=== PATIENT | male | born 1940 | race Caucasian/White ===

== ENCOUNTER 2020-09-26 09:29 | Emergency (ER) | payer MEDICARE ==
[2020-09-26 09:46] VITALS: BP 148/77; PULSE 68; RESP 18; TEMP 97.8
[2020-09-26] MEDS ORDERED: KETOROLAC 15 MG/ML 1 ML VIAL IM STA (10:31)
--- NOTE | 2020-09-26 10:46 | ED ---
Back Pain HPI - General Chief Complaint: Back Pain/Injury Stated Complaint: back pain/arm tingling Time Seen by Provider: 09/26/20 10:04 Source: patient, family Limitations: no limitations - History of Present Illness Initial Comments: Patient is a 80-year-old male presenting to the emergency Department with complaints of left-sided upper back pain and left shoulder pain that started yesterday. Patient states he noticed it when he woke up yesterday morning and throughout the day has progressively getting worse. He states this morning he woke up and feels like a tightness is worse and having some intermittent tingling into his fingers. He states that a few days before his pain started he was doing a lot of lifting and throwing of small pieces of wood. He states he has had issues with his back in the past, no surgeries, no traumas. He denies any falls. He denies any fevers or chills, no chest pain or shortness of breath. He states he has been eating and drinking as normal. He has no further complaints at this time. - Related Data Previous Rx's Medication Instructions Recorded Cyclobenzaprine [Flexeril] 5 mg PO BID #10 tablet 09/26/20 Allergies Allergy/AdvReac Type Severity Reaction Status Date / Time hydromorphone [From Dilaudid] Allergy Hallucinati Verified 09/26/20 09:46 ons Review of Systems ROS Statement: Those systems with pertinent positive or pertinent negative responses have been documented in the HPI. ROS Other: All systems not noted in ROS Statement are negative. Past Medical History Past Medical History: No Reported History History of Any Multi-Drug Resistant Organisms: None Reported Past Surgical History: No Surgical Hx Reported Past Psychological History: No Psychological Hx Reported Smoking Status: Never smoker Past Alcohol Use History: Occasional Past Drug Use History: None Reported General Exam - General Exam Comments Initial Comments: GENERAL: Patient is well-developed and well-nourished. Patient is nontoxic and in no acute distress. HEAD: Atraumatic, normocephalic. EYES: Pupils equal round and reactive to light, extraocular movements intact, sclera anicteric, conjunctiva are normal. Eyelids were unremarkable. ENT: TMs normal, nares patent, oropharynx clear without exudates. Moist mucous membranes. NECK: Normal range of motion, supple without lymphadenopathy or JVD. LUNGS: Unlabored respirations. Breath sounds clear to auscultation bilaterally and equal. No wheezes rales or rhonchi. HEART: Regular rate and rhythm without murmurs, rubs or gallops. ABDOMEN: Soft, nontender, normoactive bowel sounds. No guarding, no rebound. No masses appreciated. : Deferred MUSCULOSKELETAL: Normal extremities with adequate strength and normal range of motion, no pitting or edema. No clubbing or cyanosis. Patient has tenderness with palpation along the left trapezius muscle, up towards the lower neck and scapular region. NEUROLOGICAL: Patient is alert and oriented x 3. Motor and sensory are also intact. Cranial nerves II through XII grossly intact. Symmetrical smile. Normal speech, normal gait. PSYCH: Normal mood, normal affect. SKIN: Warm, Dry, normal turgor, no rashes or lesions noted. Limitations: no limitations Course Vital Signs 09/26/20 09:40 Temperature 97.8 F Pulse Rate 68 Respiratory 18 Rate Blood Pressure 148/77 O2 Sat by Pulse 97 Oximetry Medical Decision Making - Medical Decision Making Patient is a 80-year-old male here for left-sided upper back and shoulder pain that started yesterday. No chest pain or shortness of breath, his vitals are stable. His exam is consistent with muscle skeletal tightness and spasm. His strength is equal and bilateral, no acute neuro deficits. I discussed with patient to use heat to the area stretching and trial of muscle relaxer nighttime. I will give him a shot of Toradol here today in the ER. He will also follow up with orthopedics if his symptoms persist after 1-2 weeks. He is in agreement with this plan of care and he is stable for discharge. Case discussed with Dr. Hall. Disposition Clinical Impression: Spasm of thoracic back muscle Disposition: HOME SELF-CARE Condition: Stable Instructions (If sedation given, give patient instructions): Muscle Spasm (ED) Additional Instructions: Please return to the Emergency Department if symptoms worsen or any other concerns. Apply heat to the area, gentle stretching. May take Tylenol and/or ibuprofen for any discomfort. Trial of muscle relaxer at night. If symptoms persist after 1-2 weeks, follow up with orthopedics as discussed. Prescriptions: Cyclobenzaprine [Flexeril] 5 mg PO BID #10 tablet Is patient prescribed a controlled substance at d/c from ED?: No Referrals: Beverley Klein MD [Primary Care Provider] - 1-2 days Deena Maldonado DO [Doctor of Osteopathic Medicine] - 1-2 days Time of Disposition: 10:46
== END 2020-09-26 11:03 | disposition home or self-care (01) ==
LOC: EC 09:29
DX: M62.830 Muscle spasm of back (principal); M25.512 Pain in left shoulder; R20.2 Paresthesia of skin
CPT/HCPCS: 99283; 96372; J1885

== ENCOUNTER → 2020-10-01 | Outpatient (CLI) | payer MEDICARE ==
--- NOTE | 2020-10-01 16:01 | XR ---
EXAMINATION TYPE: XR cervical spine comp DATE OF EXAM: 10/01/2020 TECHNIQUE: Frontal, lateral, oblique, and open mouth view of the cervical spine are obtained. HISTORY: M47.12 pain and numbness into fingers. COMPARISON: None FINDINGS: The cervical spine is visualized in its entirety from C1 thru the top of T1 level, there i s slight levoconvex scoliotic curvature centered upper thoracic spine. There is reversal of normal ce rvical curvature. There is moderate to severe multilevel disc space narrowing and moderate multilevel spurring, findings greatest at C3-C4 and C6-C7 levels. Some ossific fusion at C3-C4 level is felt pr esent. No abnormal prevertebral soft tissue swelling. C1-C2 articulation satisfactory and open mouth frontal view. Oblique images appear within normal limits. Overlying soft tissue is unremarkable. IMPRESSION: As above.
== END | disposition home or self-care (01) ==
LOC: RADXRMAIN 15:34
PROVIDERS: ATTEND Internal Medicine
DX: M99.71 Connective tissue and disc stenosis of intervertebral foramina of cervical region (principal); M43.22 Fusion of spine, cervical region; M43.8X2 Other specified deforming dorsopathies, cervical region
CPT/HCPCS: 72050

== ENCOUNTER → 2020-10-29 | Outpatient (CLI) | payer MEDICARE ==
--- NOTE | 2020-10-29 13:17 | MR ---
EXAMINATION TYPE: MR cervical spine wo con DATE OF EXAM: 10/29/2020 COMPARISON: X-ray 10/01/2020 HISTORY: Neck pain TECHNIQUE: Multiplanar, multisequence images of the cervical spine were acquired. There is severe degenerative disc disease at all levels extending from C2 through C7 with moderate ch anges at C7-T1 C2-C3: Facet arthropathy. No disc herniation, canal stenosis or foraminal encroachment. C3-C4: Uncovertebral joint hypertrophy with facet arthropathy greater on the left. Posterior spondylo sis noted results in moderate effacement of thecal sac. Severe left-sided foraminal encroachment. Mil d central stenosis. C4-C5: Severe degenerative disc disease with posterior spondylosis. Facet arthropathy and bilateral u ncovertebral joint hypertrophy result in severe bilateral foraminal encroachment and mild central wendi nosis. C5-C6: Severe degenerative disc disease with broad-based disc bulging capped by spur. Uncovertebral j oint hypertrophy noted with severe bilateral foraminal encroachment and facet arthropathy. Posterior disc osteophyte complex results in severe canal stenosis with mild mass effect upon the spinal cord. C6-C7: Posterior disc osteophyte complex with uncovertebral joint hypertrophy and facet arthropathy. There is encroachment and mild mass effect upon the anterior margin the spinal cord. Severe canal wendi nosis and bilateral foraminal encroachment. C7-T1: Mild central disc bulging. Neural foramina appear to be patent with mild narrowing noted on th e right. Uncovertebral joint hypertrophy seen. No Canal stenosis. No disc herniation. Cervical segments are intact. There is normal alignment. Cervical spinal cord is of normal signal. Craniovertebral junction relationships are within normal limits. IMPRESSION: 1. Severe degenerative disc disease at levels C2-C7 with complete loss of disc space and signal. Ther e is multilevel canal stenosis and foraminal encroachment most marked at C5-6 and C6-C7 with posterio r disc osteophyte complex and hypertrophic changes resulting in anterior compression of the spinal co rd and severe canal stenosis.
== END | disposition home or self-care (01) ==
LOC: RADMRIMAIN 11:53
PROVIDERS: ATTEND Internal Medicine
DX: M54.2 Cervicalgia (principal); M48.02 Spinal stenosis, cervical region; M50.321 Other cervical disc degeneration at C4-C5 level; M50.322 Other cervical disc degeneration at C5-C6 level; M50.323 Other cervical disc degeneration at C6-C7 level; M25.78 Osteophyte, vertebrae; G95.20 Unspecified cord compression
CPT/HCPCS: 72141

== ENCOUNTER → 2020-11-16 | Outpatient (CLI) | payer MEDICARE ==
[2020-11-16 11:49] LABS: Basophils % (A) 0 %; Eosinophils # (A) 0.3 k/uL (0-0.7); Eosinophils % (A) 4 %; HCT 41.1 % (39.0-53.0); HGB 13.5 gm/dL (13.0-17.5); Lymphocytes # (A) 1.2 k/uL (1.0-4.8); Lymphocytes % (A) 18 %; MCH 31.8 pg (25.0-35.0); MCHC 32.9 g/dL (31.0-37.0); MCV 96.4 fL (80.0-100.0); Mean Platelet Volume 7.1; Monocytes # (A) 0.4 k/uL (0-1.0); Monocytes % (A) 7 %; Neutrophils # (A) 4.4 k/uL (1.3-7.7); Neutrophils % (A) 69 %; Platelet Count 255 k/uL (150-450); RBC 4.26 m/uL (4.30-5.90); RDW 12.7 % (11.5-15.5); WBC 6.4 k/uL (3.8-10.6)
[2020-11-16 11:54] LABS: Partial Thromboplastin Time 23.2 sec (22.0-30.0); Prothrombin Time 10.5 sec (9.0-12.0)
[2020-11-16 12:04] LABS: African American GFR (CKD) >90 (>60 ml/min/1.73 sqM); Anion Gap 7 mmol/L; Blood Urea Nitrogen 9 mg/dL (9-20); Calcium 8.8 mg/dL (8.4-10.2); Carbon Dioxide 27 mmol/L (22-30); Chloride 103 mmol/L (98-107); Glucose 115 mg/dL (74-99); Non-African American GFR(CKD) 87 (>60 ml/min/1.73 sqM); Potassium 4.5 mmol/L (3.5-5.1); Sodium 137 mmol/L (137-145)
[2020-11-16 12:12] LABS: Appearance,Urine Clear (Clear); Bilirubin,Urine Negative (Negative); Blood,Urine Negative (Negative); Color,Urine Yellow; Glucose,Urine (UA) Negative (Negative); Ketones,Urine Negative (Negative); Leukocyte Esterase,Urine Negative (Negative); Nitrite,Urine Negative (Negative); Protein,Urine Negative (Negative); Specific Gravity,Urine 1.014 (1.001-1.035); Urobilinogen,Urine <2.0 mg/dL (<2.0)
--- NOTE | 2020-11-16 12:16 | XR ---
EXAMINATION TYPE: XR chest 2V DATE OF EXAM: 11/16/2020 COMPARISON: NONE HISTORY: Cervical fusion on 11/26/2020 preoperative. Numbness and weakness to left arm TECHNIQUE: Frontal and lateral views of the chest are obtained. FINDINGS: Heart size is within normal limits. Trachea is midline. No focal consolidation, pneumothor ax or pleural effusion. Degenerative changes of the thoracic spine are seen. IMPRESSION: 1. No acute pulmonary disease.
== END | disposition home or self-care (01) ==
LOC: LABPAT 10:31
PROVIDERS: ATTEND Orthopaedic Surgery Orthopaedic Surgery of the Spine
DX: Z01.812 Encounter for preprocedural laboratory examination (principal); M48.02 Spinal stenosis, cervical region
CPT/HCPCS: 36415; 71046; 80048; 81003; 85025; 85610; 85730

== ENCOUNTER 2020-11-26 06:04 | Day surgery (SDC) | payer MEDICARE ==
[2020-11-21 10:55] VITALS: BMI 26.6
[~2020-11-26 06:04] MED LIST: ceFAZolin 1,000 MG in SODIUM CHLORIDE 0.9% IRRIGATIO 1,000 ML IRRIGATION PRN
[2020-11-26] MEDS ORDERED: ONDANSETRON 4 MG/2 ML VIAL IVP ONE (06:11)
[2020-11-26] MEDS ORDERED: LIDOCAINE 1% (10MG/ML) FOR IV START INTRADERMA PRN (06:11)
[2020-11-26] MEDS: LACTATED RINGERS 1,000 ML IV SCH (07:00)
[2020-11-26] MEDS ORDERED: PROPOFOL 10 MG/ML 20 ML VIAL IV ONE (07:30)
[2020-11-26] MEDS ORDERED: fentaNYL (PF) 50 MCG/ML 2 ML AMP ONE (07:30)
[2020-11-26] MEDS ORDERED: DEXAMETHASONE SOD PHOSPHATE 10 MG/ML 1 ML VIAL ONE (07:30)
[2020-11-26] MEDS ORDERED: SUCCINYLCHOLINE CHLORIDE 100 MG/5 ML SYR IV ONE (07:30)
[2020-11-26] MEDS ORDERED: MIDAZOLAM 2 MG/2 ML VIAL ONE (07:30)
[2020-11-26] MEDS ORDERED: LIDOCAINE 1% INJ 10MG/ML (20 ML MDV) ONE (07:30)
[2020-11-26] MEDS ORDERED: PHENYLEPHRINE-0.9% NACL SYG 1,000 MCG/10 ML SYRINGE ONE (07:30)
[2020-11-26] MEDS ORDERED: ePHEDrine SULFATE/0.9% NACL/PF 50 MG/5 ML SYRINGE IV ONE (07:30)
[2020-11-26] MEDS ORDERED: BUPIVACAINE (PF) 0.5% 30 ML VIAL SQ ONE ×2 (08:20)
[2020-11-26] MEDS ORDERED: LIDOCAINE 2%-EPI 1:100,000 20 ML VIAL SQ ONE ×2 (08:20)
[2020-11-26] MEDS ORDERED: SODIUM CHLORIDE 0.9% 500 ML 500 ML IV ONE (08:36)
[2020-11-26] MEDS ORDERED: GELATIN SPONGE,ABSORB (LARGE) 1 EACH SPONGE MISCELLANE ONE (08:52)
[2020-11-26] MEDS ORDERED: THROMBIN (BOVINE) 5,000 UNIT VIAL TOPICAL ONE (08:52)
[2020-11-26] MEDS ORDERED: LACTATED RINGERS 1,000 ML IV ONE (09:41)
[2020-11-26] MEDS ORDERED: CYCLOBENZAPRINE 10 MG TAB PO PRN (10:29)
[2020-11-26] MEDS ORDERED: HYDROcodone/APAP 5-325MG 1 EACH TAB PO PRN ×2 (10:29)
[2020-11-26] MEDS ORDERED: BENZOCAINE/MENTHOL LOZENG 1 EACH LOZENGE MUCOUS MEM PRN (10:29)
[2020-11-26] MEDS ORDERED: ONDANSETRON 4 MG/2 ML VIAL IVP PRN (10:29)
[2020-11-26] MEDS ORDERED: ACETAMINOPHEN TAB 325 MG TAB PO PRN (10:29)
[2020-11-26] MEDS ORDERED: HYDROmorphone 1 MG/ML 1 ML SYRINGE IVP PRN (10:29)
[2020-11-26] MEDS ORDERED: HYDROmorphone 0.5 MG/0.5 ML SYRINGE IVP PRN (10:29)
[2020-11-26] MEDS ORDERED: traMADol 50 MG TAB PO PRN (10:29)
--- NOTE | 2020-11-26 10:39 | P.OP ---
Date of Procedure: 11/26/20 Preoperative Diagnosis: Severe cervical stenosis C4 5 C5 6 C6 7, cervical myelopathy, upper extremity radiculopathy, upper extremity weakness, degenerative disc disease, neck pain Postoperative Diagnosis: Same Anesthesia: GETA Pathology: none sent Condition: stable Disposition: PACU Description of Procedure: BRIEF OPERATIVE NOTE Preoperative Diagnosis:Severe cervical stenosis C4 5 C5 6 C6 7, cervical myelopathy, upper extremity radiculopathy, upper extremity weakness, degenerative disc disease, neck pain Postoperative Diagnosis:Severe cervical stenosis C4 5 C5 6 C6 7, cervical myelopathy, upper extremity radiculopathy, upper extremity weakness, degenerative disc disease, neck pain Procedure: Anterior cervical decompression with discectomy and fusion C4 5 C5 6 C6 7 Placement of interbody graft C4 5 C5 6 C6 7 Application of anterior cervical plate C4 5 6 and 7 Removal of large cervical osteophyte C4 5 6 and 7 Surgeon: Dr. Maldonado Rigging Helper: Brett Myers is present throughout the entire the case persistence during positioning, dissection, exposure, visualization, and all crucial elements of the case as well as closure. Anesthesia: General anesthesia per Dr. Dr. Bell Estimated blood loss: Approximately 50 mL Complications: None apparent Components implanted: K2M Hume anterior cervical plate system with Vikos interbody allograft bone graft and 1 mL of DBX bone putty Disposition: To recovery room in good stable condition. OPERATIVE INDICATIONS The patient has had long-standing issues in their neck and upper extremities. He's been having worsening of his symptoms at his neck and his upper extremities particularly on the left arm. He has been having some trouble with his coordination and some strength at the left are extremity along with pain. His wound has severe stenosis at his cervical spine along with advanced degenerative changes and disc degeneration which correlated well with his neck and upper extremity symptoms. The patient has been through conservative treatment. We discussed various treatment options including surgery, and the patient wishes to proceed with surgery We discussed the risk, patient's alternatives and benefits of surgery including but not limited to, risk of bleeding risk of infection, risk of need for further surgery, risk of decreased, loss of motion, muscle function, malunion nonunion, hardware failure, nerve damage, paralysis, heart attack, and . OPERATIVE SUMMARY After discussing all the risks, patient alternatives and benefits at length, the patient elected to proceed with surgical intervention, signed informed consent, and presented for their procedure. The patient was seen and examined in the preoperative holding area and the surgical site was marked. The patient was given antibiotics and brought to the operating room. The patient was positioned on the operating room table in a supine position being careful to pad any bony prominences and pressure points. The patient was sedated and intubated by anesthesia in standard fashion. Once the airway and C- spine were stabilized the patient's arms were padded and tucked at her side, with her shoulders gently taped. The head was placed in a donut pad with the neck in good neutral alignment and position. We were careful to maintain the patient's cervical spine and good neutral alignment and position throughout. The patient was prepped and draped in a normal standard fashion. An appropriate timeout and keystone protocol performed. We were able to proceed with the surgery. The local wound area was infiltrated with local anesthetic. An incision was made transversely approximately 2-1/2 cm over the appropriate levels at C6. Dissection was taken down subcutaneously to the level of the platysma which was split in line with its fibers. Dissection was taken with a carotid approach, with the trachea and esophagus medial and the carotid sheath laterally. We dissected down to the anterior surface of the vertebral bodies. Intraoperative x-ray was taken which showed a marker at the appropriate level at C5 6. With the appropriate level positively confirmed, we were able to proceed with discectomy at the appropriate levels. All of the operative levels were exposed appropriately. There are very large anterior cervical osteophytes percolate C5 6 and C6 7 which were removed with a rongeur. I then started the discectomy decompression first at C6 7 and then moving to C5 6 and then C4 5. The patient had all their twitches back, and there was no evidence of recurrent laryngeal issue. The wound was copiously irrigated and suctioned dry as had been done periodically throughout the case. At the appropriate level/levels, starting at C6 7 C5 6 and C4 5 I established an annulotomy with an 11 blade scalpel. A discectomy was performed with a combination of pituitary rongeurs, curettes, a high-speed bur, and Kerrison rongeurs. The posterior longitudinal ligament was taken down as were any posterior osteophytes. there was severe central and bilateral foraminal spaces at each of the levels and the decompression was able to remedy the stenosis centrally and at the bilateral neural foramen. This gave good central and bilateral foraminal decompression. There is no evidence of any dural tear or leak. The endplates were prepared with a high-speed bur. With the endplates in good parallel position, I was able to size for the appropriate size interbody graft. The wound was irrigated and suctioned dry the graft was prepared and malleted into position. It had good alignment and position with the anterior surface flush with the anterior surface of the vertebral bodies. This was done similarly the appropriate levels. With the grafts intact, I was able to measure and contour and appropriate sized plate. The plate was positioned at the midline over the appropriate levels. Screw holes were established with a hand drill and drill guide. Screws were placed in good alignment and position with excellent bony purchase. They were seated under the locking device. The construct was checked and found to be stable. Intraoperative x-ray was taken which showed good alignment and position of the implants at the appropriate levels. There was no evidence of any dural tear or leak. Good hemostasis was maintained. The wound was copiously irrigated and suctioned dry as had been done periodically throughout the case. The platysma was closed with absorbable suture. The subcutaneous tissue was closed. The subcuticular tissue was closed with absorbable suture. The wound was cleaned and dried and dressed appropriately. A soft cervical collar was placed appropriately. The patient was woken up by anesthesia, extubated, transferred back gently to their hospital bed and brought to the recovery room in good stable condition. The patient will be admitted to the hospital for appropriate postoperative care, medical management and monitoring. We will continue to follow them closely about the postoperative course.
--- NOTE | 2020-11-26 10:59 | XR ---
EXAMINATION TYPE: XR cervical spine 1V DATE OF EXAM: 11/26/2020 COMPARISON: 10/01/2020 HISTORY: 80-year-old male needle placement FINDINGS: Single crosstable portable intraoperative view shows extensive endplate spondylosis. Metallic needle is present within the anterior C6-C7 disc interspace. IMPRESSION: Surgical needle within the anterior C6-C7 disc interspace. Extensive endplate spondylosis.
--- NOTE | 2020-11-26 11:21 | XR ---
EXAMINATION TYPE: XR cervical spine 1V DATE OF EXAM: 11/26/2020 COMPARISON: Earlier today HISTORY: 80-year-old male heart replacement TECHNIQUE: Crosstable intraoperative lateral view FINDINGS: The patient is intubated. OG tube is present. Interval placement of C5-T1 ACDF. Some prevertebral sof t tissue swelling compatible with postoperative change. IMPRESSION: Interval placement of C5-T1 ACDF.
[2020-11-26] MEDS: fentaNYL (PF) 50 MCG/ML 2 ML AMP IV PRN ×2 (11:31→11:42)
[2020-11-26] MEDS ORDERED: SODIUM CHLORIDE 0.9% 1,000 ML IV ONE ×2 (13:00)
[2020-11-26] MEDS ORDERED: LOSARTAN 25 MG TAB PO SCH (14:00)
[2020-11-26] MEDS ORDERED: TAMSULOSIN 0.4 MG CAP.ER.24H PO SCH (14:00)
[2020-11-26] MEDS: SODIUM CHLORIDE 0.9% 1,000 ML IV SCH ×2 (14:13→23:40)
[2020-11-26] MEDS: atenoloL 25 MG TAB PO SCH (20:29)
[2020-11-26] MEDS ORDERED: ATORVASTATIN 40 MG TAB PO SCH (21:00)
[2020-11-27 01:50] VITALS: RESP 16
[2020-11-27] MEDS: LACTATED RINGERS 1,000 ML IV SCH (04:09)
[2020-11-27 07:12] VITALS: BP 144/86; PULSE 88
[2020-11-27] MEDS: atenoloL 25 MG TAB PO SCH (07:23)
--- NOTE | 2020-11-27 08:46 | P.DS ---
Providers Expected date of discharge: 11/27/20 Attending physician: Deena Maldonado Primary care physician: Beverley Klein - Discharge Diagnosis(es) (1) Cervical stenosis of spinal canal Current Visit: Yes Status: Acute (2) Cervical myelopathy with cervical radiculopathy Current Visit: Yes Status: Acute (3) Degenerative cervical disc Current Visit: Yes Status: Acute (4) Upper extremity weakness Current Visit: Yes Status: Acute (5) Cervicalgia Current Visit: Yes Status: Acute (6) Status post cervical spinal fusion Current Visit: Yes Status: Acute (7) Heart disease Current Visit: Yes Status: Acute (8) Hypertension Current Visit: Yes Status: Acute (9) Elevated cholesterol Current Visit: Yes Status: Acute Hospital Course: This is a pleasant 80-year-old male who presented with C4-5, C5-6, and C6-7 severe cervical stenosis, cervical myelopathy, cervical degenerative disc disease, cervicalgia with upper extremity radiculopathy and weakness who failed outpatient conservative therapy. He was admitted for a C4-5, C5-6, and C6-7 anterior cervical decompression and fusion. The patient tolerated the procedure well and did well postoperatively. The patient has already had significant improvement of his left upper extremity radiculopathy. His pain is been well- controlled. He states he took one Ogden yesterday for pain control but has not had any Ogden since that time. He is eating and voiding without difficulty. He states he was able to eat a regular dinner last night without difficulty. He is very happy with his progress already this morning. He is ready for discharge. Condition on day of discharge stable. Patient will be discharged home. Patient was cleared preoperatively for surgery by Dr. Klein. Patient currently denies any nausea, vomiting, fever, or chills. Patient is eating and voiding freely without difficulty. Patient may shower Optifoam dressing intact. Patient may remove Optifoam dressing in 3 days and shower without a dressing at that time. Patient should refrain from driving until at least after their first follow-up appointment in the office. Patient should avoid excessive neck flexion, extension, rotation, and lateral sidebending; no overhead lifting; no lifting greater than 10 pounds. MAPS has been reviewed today, 11/27/2020, with an Overall Overdose Risk Score of 200. An "Opiod Start Talking" Form has been signed and placed in the patient's chart. A prescription has been written for Ogden 5 mg/325 mg 1 tab every 8 hours as needed for pain, dispensed #21. Patient should avoid anti-inflammatory medications over the next 6 weeks postoperatively. He may resume his other previously prescribed home medications while avoiding ibuprofen. Patient's other medical diagnoses include heart disease, hypertension, and elevated cholesterol. Physical Exam on day of discharge: Patient is awake, alert, and oriented 3 Vital signs stable Good chest excursion with deep inspiration and expiration Adequate range of motion of the cervical spine with flexion, extension, and bilateral rotation Duplex Trimmer strength, thumb strength, interosseous strength, biceps strength, triceps strength, and shoulder strength positive sustained bilaterally Patient does have some continued weakness with the left upper extremity especially with hotbed transfer operator Soft cervical collar intact Incision is clean, dry, and intact; no erythema, purulence, or signs of infection Optifoam dressing intact Procedures: C4-5, C5-6, and C6-7 anterior cervical decompression and fusion Patient Condition at Discharge: Stable Plan - Discharge Summary Discharge Rx Participant: No New Discharge Prescriptions: New HYDROcodone/APAP 5-325MG [Ogden 5] 1 each PO Q8HR PRN #21 tab PRN Reason: Pain No Action Atorvastatin [Lipitor] 40 mg PO HS Multivitamins, Thera [Multivitamin (formulary)] 1 tab PO DAILY atenoloL [Atenolol] 25 mg PO BID Ibuprofen [Motrin Ib] 200 mg PO Q8H PRN PRN Reason: Pain Aspirin [Adult Low Dose Aspirin EC] 81 mg PO DAILY Tamsulosin HCl [Flomax] 0.4 mg PO DAILY@1400 Losartan Potassium [Cozaar] 25 mg PO DAILY@1400 Discharge Medication List Aspirin [Adult Low Dose Aspirin EC] 81 mg PO DAILY 11/21/20 [History] Atorvastatin [Lipitor] 40 mg PO HS 11/21/20 [History] Ibuprofen [Motrin Ib] 200 mg PO Q8H PRN 11/21/20 [History] Losartan Potassium [Cozaar] 25 mg PO DAILY@1400 11/21/20 [History] Multivitamins, Thera [Multivitamin (formulary)] 1 tab PO DAILY 11/21/20 [ History] Tamsulosin HCl [Flomax] 0.4 mg PO DAILY@1400 11/21/20 [History] atenoloL [Atenolol] 25 mg PO BID 11/21/20 [History] HYDROcodone/APAP 5-325MG [Ogden 5] 1 each PO Q8HR PRN #21 tab 11/27/20 [Rx] Follow up Appointment(s)/Referral(s): Brett Altamirano, KELLI [PHYSICIAN UI UX DEVELOPER] - 2 Weeks (Patient may follow-up with Brett Altamirano PA-C or Dr. Arian Maldonado at [facility] in 2-3 weeks following discharge. ) Activity/Diet/Wound Care/Special Instructions: 1. Patient may shower with Optifoam dressing intact. 2. Patient may remove Optifoam dressing in 3 days and shower without a dressing at that time. 3. Patient may wear soft cervical collar for comfort support as needed. 4. Patient should refrain from driving until at least after their first follow- up appointment in the office. 5. Patient should avoid excessive cervical flexion, extension, and side bending; avoid overhead lifting; no lifting greater than 10 pounds 6. Take medications as prescribed 7. Do not soak in tub Discharge Disposition: HOME SELF-CARE
[2020-11-27] MEDS ORDERED: SENNOSIDES-DOCUSATE SODIUM 1 EACH TAB PO SCH (09:00)
[2020-11-27] MEDS ORDERED: MULTIVITAMINS, THERA 1 EACH TAB PO SCH (09:00)
[2020-11-27] MEDS ORDERED: ASPIRIN 81 MG PO SCH (09:00)
[2020-11-27 09:24] VITALS: TEMP 97.4
== END 2020-11-27 09:37 | disposition home or self-care (01) ==
LOC: OR 06:04 → 4SSUR 13:39 → OR 11-27 09:37
PROVIDERS: ATTEND Orthopaedic Surgery Orthopaedic Surgery of the Spine
DX: M50.021 Cervical disc disorder at C4-C5 level with myelopathy (principal); M50.121 Cervical disc disorder at C4-C5 level with radiculopathy; M48.02 Spinal stenosis, cervical region; I10 Essential (primary) hypertension; I25.10 Atherosclerotic heart disease of native coronary artery without angina pectoris; E78.5 Hyperlipidemia, unspecified; Z88.5 Allergy status to narcotic agent; Z87.891 Personal history of nicotine dependence; N40.0 Benign prostatic hyperplasia without lower urinary tract symptoms; Z79.899 Other long term (current) drug therapy; Z95.5 Presence of coronary angioplasty implant and graft; M25.78 Osteophyte, vertebrae; E66.3 Overweight
CPT/HCPCS: 86900; 86901; 86850; 72020; 22551; 22552 ×2; 20936; C1713 ×2; C1762 ×3; J2250; J1100; J0690; J2405; J2001; J3010; J2370; J0330; J2704

== ENCOUNTER → 2021-07-19 | Outpatient (CLI) | payer MEDICARE ==
--- NOTE | 2021-07-19 13:04 | XR ---
EXAMINATION TYPE: XR knee complete RT DATE OF EXAM: 07/19/2021 COMPARISON: None HISTORY: Pain TECHNIQUE: 3 view right knee FINDINGS: Medial and lateral compartment joint spaces are preserved in height. Calcification within t he meniscus appears to be present. Small joint effusion may be present. No acute fracture or dislocations are evident. Follow up exams can be performed 7-10 days from acute trauma for continued pain. IMPRESSION: 1. No acute osseous abnormality. 2. Small joint effusion. 3. Clinical consideration for calcium pyrophosphate deposition disease is recommended.
== END | disposition home or self-care (01) ==
LOC: RADXRMAIN 12:37
PROVIDERS: ATTEND Internal Medicine
DX: M25.461 Effusion, right knee (principal)

== ENCOUNTER → 2021-11-01 | Outpatient (CLI) | payer MEDICARE ==
[2021-11-01 16:05] LABS: Basophils # (A) 0.04 X 10*3/uL (0.00-0.10); Basophils % (A) 0.6 %; Eosinophils # (A) 0.17 X 10*3/uL (0.04-0.35); Eosinophils % (A) 2.6 %; HGB 14.1 g/dL (13.0-17.0); Immature Grans, Automated 0.5 %; Lymphocytes # (A) 1.69 X 10*3/uL (0.90-5.00); Lymphocytes % (A) 25.8 %; MCH 33.5 pg (27.0-32.0); MCHC 35.3 g/dL (32.0-37.0); Mean Platelet Volume 9.7 fL (9.5-12.2); Monocytes % (A) 9.2 %; NRBC Per 100 WBC 0 /100 WBCS (0.0-0.0); Neutrophils # (A) 4.01 X 10*3/uL (1.80-7.70); Neutrophils % (A) 61.3 %; Platelet Count 236 X 10*3/uL (140-440); RBC 4.21 X 10*6/uL (4.40-5.60); RDW 11.9 % (11.5-14.5); WBC 6.54 X 10*3/uL (4.50-10.00)
[2021-11-01 16:14] LABS: Appearance,Urine Clear (Clear); Bilirubin,Urine Negative (Negative); Blood,Urine Negative (Negative); Color,Urine Dark Yellow (Yellow); Ketones,Urine Negative (Negative); Nitrite,Urine Negative (Negative); PH, Urine 6.5 (5.0-8.0)
[2021-11-01 16:18] LABS: Bacteria,Urine None Seen /HPF (None Seen)
[2021-11-01 20:56] LABS: Chol/HDL Ratio 2.75 Ratio; LDL Cholesterol,Calculated 74.2 mg/dL (0.0-131.0); Magnesium 2.1 mg/dL (1.5-2.4); VLDL Calculation 12.86 mg/dL (5.00-40.00)
[2021-11-01 21:46] LABS: ALT 23 U/L (10-49); AST 30 U/L (14-35); African American GFR (CKD) 93.8 (60.0-200.0); Albumin 4.3 g/dL (3.8-4.9); Albumin/Globulin Ratio 1.59 (1.60-3.17); Alkaline Phosphatase 85 U/L (41-126); BUN/Creat Ratio 13.89 Ratio (12.00-20.00); Blood Urea Nitrogen 12.5 mg/dL (9.0-27.0); Calcium 8.9 mg/dL (8.7-10.3); Carbon Dioxide 19.2 mmol/L (20.0-27.5); Chloride 105 mmol/L (96-109); Globulin 2.7 g/dL (1.6-3.3); Glucose 100 mg/dL (70-110); Non-African American GFR(CKD) 80.9 (60.0-200.0); Potassium 4.6 mmol/L (3.5-5.5); Sodium 139 mmol/L (135-145)
== END | disposition home or self-care (01) ==
LOC: LABWHC1 10:20
PROVIDERS: ATTEND Internal Medicine
DX: I10 Essential (primary) hypertension (principal); E78.2 Mixed hyperlipidemia; E55.9 Vitamin D deficiency, unspecified; N40.1 Benign prostatic hyperplasia with lower urinary tract symptoms
CPT/HCPCS: 36415; 80053; 80061; 81001; 82306; 83036; 83735; 84153; 84439; 84443; 85025

== ENCOUNTER → 2021-12-12 | Outpatient (CLI) | payer MEDICARE ==
--- NOTE | 2021-12-12 08:51 | US ---
EXAMINATION TYPE: US liver DATE OF EXAM: 12/12/2021 COMPARISON: NONE CLINICAL HISTORY: ELEVATION OF LEVELS OF LIVER TRANSAMINASE LEVELS. EXAM MEASUREMENTS: Liver Length: 12.2 cm Gallbladder Wall: 0.3 cm CBD: 0.3 cm Right Kidney: 10.2 x 6.1 x 5.5 cm Pancreas: obscured by overlying midline bowel gas Liver: scanned intercostally, limited by rib shadowing and overlying bowel gas Gallbladder: wnl Evidence for sonographic Rhodes's sign: no CBD: wnl Right Kidney: wnl IMPRESSION: 1. Liver is visualized appears within normal limits.
== END | disposition home or self-care (01) ==
LOC: RADUSWWP 07:13
PROVIDERS: ATTEND Internal Medicine
DX: R74.01 Elevation of levels of liver transaminase levels (principal)
CPT/HCPCS: 76705

== ENCOUNTER → 2024-04-07 | Outpatient (CLI) | payer MEDICARE ==
--- NOTE | 2024-04-07 14:56 | US ---
EXAMINATION TYPE: US kidneys/renal and bladder DATE OF EXAM: 04/07/2024 COMPARISON: NONE CLINICAL INDICATION: Male, 83 years old with history of R94.4 ABNORMAL RESULTS OF KIDNEY FUNCTION ROSETTA DIES; abnormal kidney functions TECHNIQUE: Grayscale and color Doppler imaging of the bilateral kidneys and urinary bladder: FINDINGS: EXAM MEASUREMENTS: Right Kidney: 10.5 x 5.0 x 5.8 cm Left Kidney: 11.8 x 5.4 x 6.1 cm Right Kidney: No hydronephrosis or masses seen Left Kidney: No hydronephrosis or masses seen Bladder: wnl Bilateral Jets seen: yes There is no evidence for hydronephrosis at this point in time. No nephrolithiasis is seen. No mumtaz s are identified. The urinary bladder is anechoic. Bilateral ureteral jets are seen. IMPRESSION: No evidence for obstructive uropathy or renal calculus. [facility], , 04/07/2024 12:14 PM
== END | disposition home or self-care (01) ==
LOC: RADUSWWP 11:35
PROVIDERS: ATTEND Internal Medicine
DX: R94.4 Abnormal results of kidney function studies (principal)
CPT/HCPCS: 76770

== ENCOUNTER → 2024-08-15 | Outpatient (CLI) | payer MEDICARE | END | disposition home or self-care (01) | LOC: LABPAT 08:30 | PROVIDERS: ATTEND Orthopaedic Surgery | DX: Z01.818 Encounter for other preprocedural examination (principal); Z22.322 Carrier or suspected carrier of Methicillin resistant Staphylococcus aureus; M16.12 Unilateral primary osteoarthritis, left hip; E11.9 Type 2 diabetes mellitus without complications | CPT/HCPCS: 86850; 86900; 86901; 93005 ==

== ENCOUNTER 2024-08-17 13:12 | Day surgery (SDC) | payer MEDICARE ==
[~2024-08-17 13:12] MED LIST changes: +HYDROmorphone 0.5 MG/0.5 ML SYRINGE IVP PRN; +ONDANSETRON 4 MG/2 ML VIAL IVP PRN; +TRANEXAMIC 1,000 MG/100ML-NACL 1,000 MG in SALINE 1 100ML.BAG IV PRN; +TRANEXAMIC 1,000 MG/100ML-NACL 1,000 MG in SALINE 1 100ML.BAG IVPB PRN; -ceFAZolin 1,000 MG in SODIUM CHLORIDE 0.9% IRRIGATIO 1,000 ML IRRIGATION PRN
[2024-08-17] MEDS: IV FLUID CONTINUATION 1,000 ML IV ONE (13:41)
[2024-08-17] MEDS: ACETAMINOPHEN TAB 500 MG TAB PO PRN (14:12)
[2024-08-17] MEDS: oxyCODONE ER 10 MG TAB.ER.12H PO PRN (14:12)
[2024-08-17] MEDS: METOPROLOL TARTRATE 5 MG/5 ML VIAL IVP STA (14:12)
[2024-08-17] MEDS: DEXAMETHASONE SOD PHOSPHATE 10 MG/ML 1 ML VIAL IV PRN (14:13)
[2024-08-17] MEDS: KETOROLAC 15 MG/ML 1 ML VIAL IVP PRN (14:13)
[2024-08-17] MEDS: DOCUSATE 100 MG CAP PO PRN (14:13)
[2024-08-17] MEDS: FAMOTIDINE 20 MG/2 ML VIAL IVP PRN (14:14)
[2024-08-17] MEDS: fentaNYL (PF) 50 MCG/ML 2 ML AMP IVP STA (14:14)
[2024-08-17] MEDS: ONDANSETRON 4 MG/2 ML VIAL IVP ONE (14:14)
[2024-08-17] MEDS: MIDAZOLAM 2 MG/2 ML VIAL IV ONE (14:17)
--- NOTE | 2024-08-17 15:07 | P.ANPRN ---
Procedure Note - Anesthesia - Nerve Block Performed Left Raoul Single Time Out Performed: Yes (1414) Date of Procedure: 08/17/24 Procedure Start Time: 14:15 Procedure Stop Time: 14:21 Location of Patient: PreOp Indication: Acute Post-Operative Pain, Requested by Surgeon Specifically requested for management of pain by DrDanyelle: Iain Gu Sedation Type: Sedate with meaningful contact maintained Preparation: Sterile Prep Position: Supine Catheter: None Needle Types: Pajunk Needle Gauge: 21 Ultrasound used to visualize needle placement: Yes Ultrasound used to observe medication spread: Yes Injectate: 0.5% Ropivacaine (see comment for volume) (30cc) Blood Aspirated: No Pain Paresthesia on Injection Noted: No Resistance on Injection: Normal Image Stored and Saved: Yes Events: Uneventful and Well Tolerated
[2024-08-17] MEDS ORDERED: NEOSTIGMINE 1 MG/ML 10 ML VIAL ONE (15:28)
[2024-08-17] MEDS ORDERED: LIDOCAINE 1% INJ 10MG/ML (20 ML MDV) ONE (15:28)
[2024-08-17] MEDS ORDERED: ROCURONIUM 10 MG/ML (5 ML VIAL) IV ONE (15:28)
[2024-08-17] MEDS ORDERED: PHENYLEPHRINE 10 MG/ML VIAL ONE (15:28)
[2024-08-17] MEDS ORDERED: DEXAMETHASONE SOD PHOSPHATE 4 MG/ML 1 ML VIAL ONE (15:28)
[2024-08-17] MEDS ORDERED: GLYCOPYRROLATE 0.2 MG/ML 2 ML VIAL ONE (15:28)
[2024-08-17] MEDS ORDERED: SUCCINYLCHOLINE CHLORIDE 200 MG/10 ML VIAL IV ONE (15:28)
[2024-08-17] MEDS ORDERED: fentaNYL (PF) 50 MCG/ML 2 ML AMP ONE (15:28)
[2024-08-17] MEDS ORDERED: ROPIVACAINE 5 MG/ML 30 ML VIAL ONE (15:28)
[2024-08-17] MEDS ORDERED: PROPOFOL 10 MG/ML 20 ML VIAL IV ONE (15:28)
[2024-08-17] MEDS: ROPIVACAINE/EPI/CLONIDINE/KET 50 ML SYRINGE MISCELLANE PRN (16:06)
[2024-08-17] MEDS: EPINEPHrine 2 MG in SODIUM CHLORIDE 0.9% 200 ML IV ONE (16:29)
[2024-08-17] MEDS: LACTATED RINGERS 1,000 ML IV ONE (17:15)
[2024-08-17] MEDS ORDERED: ONDANSETRON 4 MG/2 ML VIAL IVP PRN (17:23)
[2024-08-17] MEDS ORDERED: hydrOXYzine pamoate 25 MG CAP PO PRN (17:23)
[2024-08-17] MEDS ORDERED: diazePAM 5 MG TAB PO PRN (17:23)
[2024-08-17] MEDS ORDERED: MAGNESIUM HYDROXIDE 2,400 MG/30 ML CUP PO PRN (17:23)
[2024-08-17] MEDS ORDERED: TEMAZEPAM 15 MG CAP PO PRN (17:23)
[2024-08-17] MEDS ORDERED: HYDROmorphone 0.5 MG/0.5 ML SYRINGE IVP PRN ×3 (17:23)
[2024-08-17] MEDS ORDERED: NALOXONE 0.4 MG/ML 1 ML VIAL IV PRN (17:23)
--- NOTE | 2024-08-17 17:23 | P.OP ---
Date of Procedure: 08/17/24 Preoperative Diagnosis: Severe left hip osteoarthritis Postoperative Diagnosis: Same Procedure(s) Performed: Left direct anterior total hip arthroplasty Implants: 1. Kirsten Trident II Acetabular Cup, Size #52 2. Kirsten Accolade C Size # 3 Femoral Stem, Standard Offset 3. Biolox delta femoral head, 36 mm, -5 mm neck Anesthesia: GETA, regional Surgeon: Iain Gu Packer And Carry Out #1: Sean Collins Estimated Blood Loss (ml): 300 IV fluids (ml): 800 Pathology: none sent Condition: stable Disposition: PACU Indications for Procedure: I had a long discussion with the patient in the office on the potential risks and complications of an elective total hip replacement through a direct anterior approach. Risks discussed include, but are certainly not limited to, risks from anesthesia, superficial infection requiring local wound care or antibiotics, deep osbaldo-prosthetic joint infection and the treatment required to eradicate infection, intraoperative fracture, postoperative periprosthetic fracture, damage to local blood vessels or nerves particularly the lateral femoral cutaneous nerve, delayed wound healing requiring local wound care or possibly surgical debridement, hip dislocation, leg length discrepancy, soft tissue irritation around the total hip implant such as iliopsoas tendinitis or trochanteric bursitis, wear and osteolysis from the implants, squeaking or audible noises, groin pain, thigh pain, heterotopic ossification, stiffness, aseptic loosening of the implants, dissatisfaction with surgical outcome, need for revision surgery, DVT, PE, swelling of the operative extremity, acute coronary event, stroke, failure to thrive, and possibly loss of life or limb. The patient understands that while these are the most common complications after an elective hip replacement there are certainly other less common complications possible. They were given ample time to ask questions regarding the potential complications of a hip replacement. Following our discussion the patient provided their verbal and written consent to go forward with an elective total hip replacement. Operative Findings: Severe left hip osteoarthritis with complete cartilage loss on the femoral head and acetabulum. The patient had relatively poor bone quality so I elected to use cemented femoral fixation to lower his risk of periprosthetic fracture Description of Procedure: The patient was identified in the preoperative holding area and the correct hip was marked with my initials. I reviewed the procedure and consent with the patient. All of their questions were answered. The patient was then brought back into the operating room by anesthesia. While on the [facility] anesthesia was administered by the anesthesia team. Preoperative antibiotics and tranexamic acid were also given. After the patient was under anesthesia I examined their ankles to determine their preoperative leg length discrepancy. The skin over the anterior aspect of the hip was shaved to remove hair over the site of planned incision. Both feet and ankles were padded with webril and boots for the Leroy were applied. The patient was then carefully transferred onto the Leroy table. A perineal post was immediately placed. The arms were placed on arm holders and were well-padded. Both boots were secured to the spars on the Leroy table. The patient was positioned so that the pelvis was centered over the post. Nonsterile drapes were applied. A timeout was performed identifying the correct patient, operative extremity, and procedure. At this point fluoroscopy was brought in to take preoperative images of the pelvis and operative hip. Using the standing AP pelvis from the office as a template, a comparable image was obtained with fluoroscopy. A metallic bar was used to create a bi-ischial line for use as a reference to leg length adjustments during the procedure. Global offset was also measured on both the operative and nonoperative leg. Fluoroscopy was then brought out and a pre-scrub using a chlorhexidine scrub brush was performed. The operative limb was then prepped and draped in the standard sterile fashion. An anterior longitudinal incision was made lateral and distal to the ASIS. The skin and subcutaneous tissues were incised sharply. The underlying tensor fascia was identified and incised in its midportion. The fascia was dissected free from the underlying muscle and the muscle belly was retracted. A blunt tipped cobra retractor was placed over the superior neck under the muscle fibers of the gluteus minimus. The deep enveloping fascia of the tensor was incised. The anterior leash of vessels were then identified and cauterized. The fascia between the rectus and the capsule was then incised and the pre-capsular fat was excised. A second Cobra was placed inferior to the neck. The interval between the rectus and iliocapsularis and the hip capsule was developed and a retractor was placed carefully over the anterior rim of the acetabulum. A T-shaped anterior capsulotomy was performed. The superior capsular leaflet was left in place in the inferior capsular flap was excised. The Cobra retractors were placed intracapsularly. We then made a femoral neck osteotomy according to preoperative and intraoperative templating and confirmed the level of the osteotomy using fluoroscopic imaging. The femoral head was removed, passed off to the back table, and sized. The superior capsular flap was excised. Retractors were placed circumferentially exposing the acetabulum. We then circumferentially debrided the acetabulum free of labrum and osteophytes. The pulvinar was removed to fully visualize the cotyloid fossa. We then sequentially reamed to achieve peripheral fit and excellent bleeding subchondral bone. The socket was thoroughly irrigated. The acetabular component was impacted into the appropriate position using fluoroscopy to guide version, inclination, and depth of insertion taking care to have a comparable image of the AP pelvis to the standing image taken in the office. An excellent press-fit was achieved and final position was confirmed using fluoroscopy. The press fit was augmented with bony cancellus dome screws. The liner was then impacted into the socket. Attention was then turned to the femur. The remnant dorsal lateral capsule was excised. The short external rotators were visible and protected. A bone hook was used to confirm appropriate translation of the trochanter away from the acetabulum. The leg was then extended and adducted and the bone hook was used to elevate the femur for broaching. On inspection of the patient's proximal femur, they appeared to have poor bone quality so I elected to proceed with cemented fixation of the femoral component. A box osteotome and blunt tipped canal sound was then utilized to gain access to the femoral canal. We then sequentially broached the femur in appropriate anteversion until torsional stability was achieved and the implant was felt to have reached the appropriate size to allow trialing. The neck cut was brought flush to the trial broach with a calcar planar. A trial neck and head were then placed onto the broach and the hip was atraumatically reduced under direct visualization. External rotation to 90 was performed to assess stability. Fluoroscopy was brought in. An AP and lateral fluoroscopic image of the proximal femur was obtained to assess position and fill of the trial broach. An AP of the pelvis was then obtained and matched to the preoperative image taken. A bi-ischial bar was then placed and measurements were taken to assess changes in length and offset. The hip was then carefully dislocated, the proximal femur was exposed, and the trial implants were removed. The proximal femur was then prepared for cementing. The canal was thoroughly irrigated with pulsatile lavage to remove blood and marrow contents. A cement restrictor was placed to a depth just distal to the tip of the final implant. Epinephrine-soaked gauze was then packed into the proximal femur. 2 bags of cement were then mixed using a centrifuge and placed into a cement gun. Anesthesia was notified that cementing was about to commence to make sure the patient was appropriately ventilated and hydrated. Once the cement had reached appropriate consistency, the cement gun was used to fill the canal in a retrograde fashion starting at the restrictor. Cement was then pressurized into the canal with a blue tipped radial drill press operator. The stem was then carefully introduced into the cement taking care to guide the implant into appropriate version. The stem was held in position until the cement had fully set. All extra cement was removed while the cement was hardening. The trunnion was cleansed and the final head was tapped into place to engage the Singh taper. The acetabulum was irrigated and visualized to be free of debris. The hip was carefully reduced. Stability was checked clinically with external rotation to 90 and there was no evidence of instability. Final fluoroscopic images were taken. The wound was then thoroughly irrigated and soaked with a dilute Betadine rinse for 3 minutes. 3 L of sterile saline was irrigated through the wound using pulsatile lavage. Local anesthetic cocktail was injected into the soft tissues around the surgical field. The wound was then closed in layers. A sterile dressing was placed over the surgical incision. The drapes were taken down and the patient was carefully transferred off of the Leroy table. Following removal of the boots the leg lengths felt acceptable. The patient was then taken to recovery room having tolerated the procedure well. Sean Collins PA-C was required as a skilled surgical first assistant due to the complexity of surgery for patient positioning, draping, exposure, retraction, closure of wound and application of dressing. PLAN: The patient can weight-bear as tolerated on the operative extremity. 2 doses of postoperative antibiotics. DVT prophylaxis with aspirin 81 mg twice a day based on preoperative risk stratification. Physical therapy for gait training.
[2024-08-17] MEDS: LACTATED RINGERS 1,000 ML IV SCH (21:04)
[2024-08-17] MEDS: DEXAMETHASONE SOD PHOSPHATE 4 MG/ML 1 ML VIAL IV ONE (21:04)
[2024-08-17] MEDS: SENNOSIDES-DOCUSATE SODIUM 1 EACH TAB PO SCH (21:21)
[2024-08-17] MEDS: ASPIRIN 81 MG PO SCH (21:21)
[2024-08-17] MEDS: HYDROcodone/APAP 10-325MG 1 EACH TAB PO PRN (21:41)
--- NOTE | 2024-08-17 22:54 | FL ---
Fluoroscopy INDICATION: Pain FINDINGS: Fluoroscopy time: 22 seconds. Total dose area product (DAP) in uGy*m?, mGy*cm? (or similar): 0.9085 Images obtained: 6. IMPRESSION: 1. Documentation of fluoroscopy. [facility], , 08/17/2024 10:51 PM
[2024-08-17] MEDS ORDERED: NON FORMULARY DRUG (Doxylamine Succinate [Unisom] 25 MG Tablet) PO PRN (23:38)
[2024-08-18] MEDS: ATORVASTATIN 40 MG TAB PO SCH (00:16)
[2024-08-18] MEDS: TAMSULOSIN 0.4 MG CAP.ER.24H PO SCH ×2 (00:16→20:11)
[2024-08-18] MEDS: SODIUM CHLORIDE 0.9% 1,000 ML IV SCH (06:49)
--- NOTE | 2024-08-18 08:07 | P.PN ---
Subjective Progress Note Date: 08/18/24 No acute events overnight per patient. Patient is doing well this morning. The pain in their hip is mild to moderate. They have walked to the bathroom with a walker and assistance. They deny chest pain or shortness of breath. Objective - Vital Signs Vital signs: Vital Signs Temp 98.0 F 08/18/24 01:30 Pulse 106 H 08/18/24 01:30 Resp 16 08/18/24 01:30 BP 118/71 08/18/24 01:30 Pulse Ox 91 L 08/18/24 01:30 FiO2 Intake & Output 08/17/24 08/18/24 08/18/24 18:59 06:59 18:59 Intake Total 1151 Output Total 300 825 Balance 851 -825 Weight 78.4 kg 78.4 kg Intake: IV 1151 Output: Urine 825 Straight 625 Estimated Blood Loss 300 - Exam Patient was examined at bedside. Patient is resting comfortably in bed. No apparent distress. They are awake, alert and able to answer questions. On inspection the surgical hip dressing is intact, there is no drainage or strikethrough. The skin surrounding the dressing is free of erythema. There is mild swelling in the operative thigh. Operative femoral nerve function is intact. The operative calf is soft to compression. The patient is able to actively plantarflex and dorsiflex their operative ankle and toes. Their operative foot appears well perfused. Assessment and Plan Assessment: Postop day #1 status post left total hip arthroplasty for severe left hip osteoarthritis Left hip pain Multiple medical problems Plan: Weight-bear as tolerated on the operative extremity. Use a walker to ambulate. Leave surgical dressing in place. Physical therapy for gait training and mobilization. Aspirin 81 mg twice daily for DVT prophylaxis We appreciate internal medicine for perioperative medical management. Disposition: Patient will work with physical therapy today. Anticipate staying until tomorrow.
[2024-08-18] MEDS: atenoloL 25 MG TAB PO SCH (08:16)
--- NOTE | 2024-08-18 08:47 | XR ---
Fluoroscopy INDICATION: Pain FINDINGS: Fluoroscopy time: 22 seconds. Total dose area product (DAP) in uGy*m?, mGy*cm? (or similar): 0.9085 Images obtained: 6. Images document placement of the left hip prosthesis IMPRESSION: 1. Documentation of fluoroscopy. [facility], , 08/18/2024 8:45 AM
[2024-08-18 10:29] LABS: Basophils # (A) 0.01 X 10*3/uL (0.00-0.10); Basophils % (A) 0.1 %; Eosinophils # (A) 0 X 10*3/uL (0.04-0.35); Eosinophils % (A) 0 %; HCT 32.5 % (39.6-50.0); HGB 11.3 g/dL (13.0-17.0); Lymphocytes # (A) 0.49 X 10*3/uL (0.90-5.00); Lymphocytes % (A) 5.3 %; MCH 33.1 pg (27.0-32.0); MCHC 34.8 g/dL (32.0-37.0); MCV 95.3 FL (80.0-97.0); Mean Platelet Volume 9.8 FL (9.5-12.2); Monocytes # (A) 0.34 X 10*3/uL (0.20-1.00); Monocytes % (A) 3.7 %; NRBC Per 100 WBC 0 X 10*3/uL (0.00-0.01); Neutrophils # (A) 8.37 X 10*3/uL (1.80-7.70); Neutrophils % (A) 90.4 %; Platelet Count 228 X 10*3/uL (140-440); RBC 3.41 X 10*6/uL (4.40-5.60); WBC 9.26 X 10*3/uL (4.50-10.00)
[2024-08-18] MEDS: LOSARTAN 25 MG TAB PO SCH (13:46)
[2024-08-18] MEDS: MULTIVITAMINS, THERA 1 EACH TAB PO SCH (13:46)
--- NOTE | 2024-08-18 18:33 | P.CONS ---
History of Present Illness - Reason for Consult Consult date: 08/18/24 Medical management Requesting physician: Iain Gu - Chief Complaint Status post left direct anterior total hip arthroplasty - History of Present Illness HISTORY OF PRESENT ILLNESS: This is an 83-year-old male with a previous medical history significan t for hypertension and hypertensive cardiovascular disease, hyperlipidemia, coronary artery disease status post PCI and angioplasty enlarged prostate, with lower urinary tract symptoms, vitamin D deficiency, patient underwent left direct anterior total hip arthroplasty that was done successfully by Dr. Gu and we were asked to see the patient for postoperative medical management. Patient is sitting up in a chair in no apparent distress, his pain is well- controlled, he is not able to urinate as much, he appears to have some issues with urinary retention, he was prescribed Flomax 0.4 mg once every day, patient is not willing to have a Sibley catheter in place, we will continue to follow the patient very closely, may need urology consultation if is not getting better. REVIEW OF SYSTEMS: Constitutional: No documented fever, no chills, no night sweats. No weight change. No weakness, fatigue or lethargy. No daytime sleepiness. EENT: No headache. No blurred vision or double vision, no loss of vision. No loss of Hearing, no ringing in the ears, no dizziness. No nasal drainage or congestion. No epistaxis. No sore throat. Lungs: No shortness of breath, no cough, no sputum production. No wheezing. Reports dyspnea with activity. Cardiovascular: No chest pain, no lower extremity edema. No palpitations. No paroxysmal nocturnal dyspnea. No orthopnea. No lightheadedness or dizziness. No syncopal episodes. Abdominal: Reports no abdominal pain. No nausea, vomiting. No diarrhea. No constipation. No bloody or tarry stools reports loss of appetite. Genitourinary: No dysuria, increased frequency, urgency. positive for urinary retention. Musculoskeletal: No myalgias. No muscle weakness, no gait dysfunction, no frequent falls. No back pain. No neck pain.left hip pain Integumentary: No wounds, no lesions. No rash or pruritus. No unusual bruising. No change in hair or nails. Neurologic: No aphasia. No facial droop. No change in mentation. No head injury. No headache. No paralysis. No paresthesia. Psychiatric: No depression. No anxiety. No mood swings. Endocrine: No abnormal blood sugars. No weight change. PAST MEDICAL HISTORY: Hypertension and hypertensive cardiovascular disease. Mixed hyperlipidemia. Coronary artery disease status post PCI and angioplasty. Enlarged prostate with lower urinary tract symptoms Vitamin D deficiency Osteoarthritis Spondylosis of the lumbar spine. Carpal tunnel syndrome. Mild cognitive impairment. Basal cell cancer. PAST SURGICAL HISTORY: Left direct anterior total hip arthroplasty 08/17/2024 Laminectomy. Tonsillectomy and adenoidectomy. Left heart catheterization with PCI/angioplasty. SOCIAL HISTORY: Patient used to smoke about 2 pack every day since the age of 12 and he quit at the age of 47, he denies any alcohol ingestion, no drug use or abuse, lives with his . FAMILY HISTORY: Father at age of 55 from coronary artery disease post multiple MIs, mother at the age of 95 from Alzheimer dementia Parkinson and also old age, patient had 1 brother who at age of 67 from renal disease, patient had 2 sisters 1 from Alzheimer dementia the other 1 from aortic valve replacement with a EARLENE valve as well as CVA, patient has 3 sons 1 with hyperlipidemia 1 with hypothyroidism and the other 1 with diabetes patient has 1 daughter no major medical problems. PHYSICAL EXAMINATION: General: 83-year-old male sitting up in a chair in no apparent distress. HEENT: Head is atraumatic, normocephalic, pupils were equal round reactive to light and recommendation, extraocular muscle movement were intact, sclera nonicteric, conjunctivae were pale, mucous membranes of the mouth are somewhat dry. Neck: Supple, no JVP, normal carotid upstroke bilaterally, no lymphadenopathy. Chest: Decreased breath sounds at the bases, few rhonchi, no expiratory wheezes, no chest wall tenderness, no intercostal retractions. Heart: First heart sound is normal, second heart sounds normal there is systolic ejection murmur 2/6 located in the left sternal border. Abdomen: Soft, nontender, nondistended, positive bowel sounds. Extremities: There is no edema no calf tenderness DP +2 bilaterally, left hip is covered with a dressing no evidence of drainage or erythema. Neurologic examination: Patient is awake alert and oriented x3, cranial nerves II-12 appear grossly intact, muscle power were 5 out of 5 in upper extremities and 5 out of 5 in bilateral lower extremities, deep tendon reflexes normal bilaterally. ASSESSMENT AND PLAN: 1. Postoperative day #1 status post left anterior direct total hip arthroplasty. Patient was instructed to use incentive spirometer to reduce the incidence of atelectasis and healthcare associated pneumonia, continue current pain management as outlined by orthopedic surgery, continue DVT prophylaxis, early ambulation, monitor the patient for urinary retention apparently he is appearing to have 1, we will monitor the patient very closely continue Flomax, increase the Flomax to 0.4 mg orally twice a day urology consultation if needed. 2. Hypertension and hypertensive cardiovascular disease. Continue losartan 25 mg once every day, atenolol 25 mg orally twice every day, monitor the patient blood pressure very closely. 3. Mixed hyperlipidemia. Continue atorvastatin 40 mg once every day, monitor lipid panel, keep LDL 55-70. 4. Enlarged prostate. Continue Flomax 0.4 mg twice every day, if no void patient will need to have a Sibley catheterization with urology consultation. 5. Osteoarthritis. Continue current pain management. 6. Coronary artery disease status post PCI with angioplasty. Continue aspirin 81 mg twice every day, continue atenolol 25 mg twice every day, continue atorvastatin 40 mg once every day. 7. Spondylosis of the lumbar spine stable at this time continue current pain management. 8. Carpal tunnel syndrome appears to be stable at this time. 9. Mild cognitive impairment. Stable at this time. 10. DVT prophylaxis. Continue aspirin 81 mg orally twice every day, continue with early ambulation. Continue bilateral knee-high ISH hose. 11. GI prophylaxis. Continue Protonix 40 mg once every day. 12. Insomnia. Continue patient on temazepam and or Unisom 13. Thank you for the consult we will follow the patient with you. Past Medical History Past Medical History: No Reported History History of Any Multi-Drug Resistant Organisms: None Reported Past Surgical History: No Surgical Hx Reported Additional Past Surgical History / Comment(s): neck surgery, "back surgery, balloon, 2 stents, plates in neck" Additional Past Anesthesia/Blood Transfusion Reaction / Comm: no blood tx hx Date of Last Stent Placement:: unk Past Psychological History: No Psychological Hx Reported Smoking Status: Never smoker Past Alcohol Use History: Occasional Past Drug Use History: None Reported - Past Family History Father Family Medical History: No Reported History Medications and Allergies Home Medications Medication Instructions Recorded Confirmed Type Aspirin [Adult Low Dose Aspirin EC] 81 mg PO DAILY 11/21/20 08/11/24 History Atorvastatin [Lipitor] 40 mg PO HS 11/21/20 08/17/24 History Losartan Potassium [Cozaar] 25 mg PO DAILY@1400 11/21/20 08/17/24 History Multivitamins, Thera [Multivitamin 1 tab PO DAILY 11/21/20 08/17/24 History (formulary)] Tamsulosin HCl [Flomax] 0.4 mg PO DAILY@1400 11/21/20 08/17/24 History atenoloL 25 mg PO BID 11/21/20 08/17/24 History Celecoxib [CeleBREX] 200 mg PO DAILY 08/11/24 08/11/24 History Doxylamine Succinate [Unisom] 25 mg PO HS PRN 08/11/24 08/17/24 History Aspirin 81 mg PO BID #60 tab 08/18/24 Rx Docusate [Colace] 100 mg PO BID #60 capsule 08/18/24 Rx HYDROcodone/APAP 5-325MG [Doucette 1 - 2 tab PO Q6HR PRN #48 tab 08/18/24 Rx 5-325] Omeprazole 40 mg PO DAILY #30 cap 08/18/24 Rx Allergies Allergy/AdvReac Type Severity Reaction Status Date / Time hydromorphone [From Dilaudid] Allergy Hallucinati Verified 08/17/24 13:38 ons Physical Exam Vitals: Vital Signs Temp Pulse Pulse Resp BP Pulse Ox 08/18/24 07:30 98.1 F 91 17 122/67 93 L 08/18/24 01:30 98.0 F 106 H 16 118/71 91 L 08/17/24 20:00 97 123/70 95 08/17/24 18:30 88 16 106/61 92 L 08/17/24 18:14 94 16 103/59 94 L 08/17/24 18:00 96 113/74 92 L 08/17/24 17:59 96 16 114/69 96 08/17/24 17:44 97.2 F L 100 14 128/64 96 08/17/24 17:40 100 112/72 95 08/17/24 17:15 90 114/73 95 08/17/24 17:00 86 120/78 96 08/17/24 16:35 89 118/71 93 L 08/17/24 16:20 85 122/69 97 Intake and Output 08/17/24 08/18/24 08/18/24 22:59 06:59 14:59 Intake Total 851 Output Total 925 200 Balance -74 -200 Intake: IV 851 Output: Urine 625 200 Straight 625 Estimated Blood Loss 300 Other: Weight 78.4 kg Results CBC & Chem 7: 08/18/24 04:45
[2024-08-18] MEDS ORDERED: TAMSULOSIN 0.4 MG CAP.ER.24H PO SCH (23:38)
[2024-08-19] MEDS: diazePAM 5 MG TAB PO PRN (04:46)
[2024-08-19] MEDS: HYDROcodone/APAP 5-325MG 1 EACH TAB PO PRN (04:46)
--- NOTE | 2024-08-19 08:26 | P.PN ---
Subjective Progress Note Date: 08/19/24 Patient was seen and evaluated this morning. According to nursing he had to have a Sibley placed due to urinary retention. This morning he is comfortable in bed. He has minimal pain in his hip. He has no other complaints other than unable to urinate. Objective - Vital Signs Vital signs: Vital Signs Temp 98.7 F 08/19/24 01:10 Pulse 89 08/19/24 01:10 Resp 17 08/19/24 01:10 BP 114/64 08/19/24 01:10 Pulse Ox 96 08/19/24 01:10 FiO2 Intake & Output 08/18/24 08/19/24 08/19/24 18:59 06:59 18:59 Output Total 400 1250 Balance -400 -1250 Output: Urine 400 1250 Straight 400 700 Other: Voiding Method Toilet Urinal # Voids 1 - Exam Patient is resting comfortably in bed. He is alert and able to answer questions. A focused exam of the left lower extremity was conducted. On inspection there is an intact dressing. His thigh and calf are soft. Femoral nerve function is intact. He is able to actively plantarflex and dorsiflex his ankle and his toes. - Labs CBC & Chem 7: 08/18/24 04:45 Labs: Abnormal Lab Results - Last 24 Hours (Table) 08/18/24 Range/Units 04:45 RBC 3.41 L (4.40-5.60) X 10*6/uL Hgb 11.3 L (13.0-17.0) g/dL Hct 32.5 L (39.6-50.0) % MCH 33.1 H (27.0-32.0) pg Immature Gran # 0.05 H (0.00-0.04) X 10*3/uL Neutrophils # 8.37 H (1.80-7.70) X 10*3/uL Lymphocytes # 0.49 L (0.90-5.00) X 10*3/uL Eosinophils # 0 L (0.04-0.35) X 10*3/uL Assessment and Plan Assessment: Post operative day 2 status post left direct anterior total hip arthroplasty Post operative urinary retention Plan: Continue treatment as outlined yesterday. I will defer to internal medicine and neurology for management of the patient's urinary retention. The patient is okay to discharge home when he is medically cleared by internal medicine and urology with a plan for his urinary retention. I appreciate internal medicine's assistance with perioperative medical management
--- NOTE | 2024-08-19 11:47 | P.GSCN ---
History of Present Illness Consult date: 08/19/24 Reason for Consult: Urinary retention History of present illness: This is an 83-year-old male status post left hip replacement on August 17. Patient developed urinary retention postoperatively requiring Osuna catheter. Catheter was placed for persistently elevated postvoid residual 600 mL. No previous history of urinary retention. He does have BPH at baseline and was previously on Flomax, but he indicated he ran out of his medication for the past week and has been off of Flomax since that time. He indicated he was able to void small amounts but had persistently elevated postvoid residual. Review of Systems - Constitutional Denies fever, Denies weight loss - EENT Ears, nose, mouth and throat: Denies dysphagia - Cardiovascular Denies chest pain, Denies shortness of breath - Respiratory Denies cough, Denies 7 - Gastrointestinal Reports as per HPI - Genitourinary Denies dysuria, Denies hematuria Past Medical History Past Medical History: No Reported History History of Any Multi-Drug Resistant Organisms: None Reported Past Surgical History: No Surgical Hx Reported Additional Past Surgical History / Comment(s): neck surgery, "back surgery, balloon, 2 stents, plates in neck" Additional Past Anesthesia/Blood Transfusion Reaction / Comm: no blood tx hx Date of Last Stent Placement:: unk Past Psychological History: No Psychological Hx Reported Smoking Status: Never smoker Past Alcohol Use History: Occasional Past Drug Use History: None Reported - Past Family History Father Family Medical History: No Reported History Medications and Allergies Home Medications Medication Instructions Recorded Confirmed Type Aspirin [Adult Low Dose Aspirin EC] 81 mg PO DAILY 11/21/20 08/11/24 History Atorvastatin [Lipitor] 40 mg PO HS 11/21/20 08/17/24 History Losartan Potassium [Cozaar] 25 mg PO DAILY@1400 11/21/20 08/17/24 History Multivitamins, Thera [Multivitamin 1 tab PO DAILY 11/21/20 08/17/24 History (formulary)] Tamsulosin HCl [Flomax] 0.4 mg PO DAILY@1400 11/21/20 08/17/24 History atenoloL 25 mg PO BID 11/21/20 08/17/24 History Celecoxib [CeleBREX] 200 mg PO DAILY 08/11/24 08/11/24 History Doxylamine Succinate [Unisom] 25 mg PO HS PRN 08/11/24 08/17/24 History Aspirin 81 mg PO BID #60 tab 08/18/24 Rx Docusate [Colace] 100 mg PO BID #60 capsule 08/18/24 Rx HYDROcodone/APAP 5-325MG [[place]olla 1 - 2 tab PO Q6HR PRN #48 tab 08/18/24 Rx 5-325] Omeprazole 40 mg PO DAILY #30 cap 08/18/24 Rx Allergies Allergy/AdvReac Type Severity Reaction Status Date / Time hydromorphone [From Dilaudid] Allergy Hallucinati Verified 08/17/24 13:38 ons Surgical - Exam Vital Signs Pulse BP Pulse Ox 85 122/69 97 08/17/24 16:20 08/17/24 16:20 08/17/24 16:20 - General no distress, no pain - Eyes normal ocular movement, no pale - ENT normal nares, normal mucosa - Respiratory normal expansion, normal respiratory effort - Abdomen Abdomen: soft, non tender - Psychiatric oriented to time, oriented to person, oriented to place Results - Labs 08/18/24 04:45 Assessment and Plan Assessment: 83-year-old male with postoperative urinary retention. Patient has history of B PH but he has been off Flomax for 1 week, at this point recommend continuing his Flomax and discharging home with the Osuna catheter, he can follow-up in our office on Thursday for a trial of void. Given his recent hip replacement and osuna catheter do recommend discharging home with a short course of antibiotics
--- NOTE | 2024-08-19 14:37 | P.PN ---
Subjective Progress Note Date: 08/19/24 HISTORY OF PRESENT ILLNESS: This is an 83-year-old male with a previous medical history signifi cant for hypertension and hypertensive cardiovascular disease, hyperlipidemia, coronary artery disease status post PCI and angioplasty enlarged prostate, with lower urinary tract symptoms, vitamin D deficiency, patient underwent left direct anterior total hip arthroplasty that was done successfully by Dr. Gu and we were asked to see the patient for postoperative medical management. Patient is sitting up in a chair in no apparent distress, his pain is well- controlled, he is not able to urinate as much, he appears to have some issues with urinary retention, he was prescribed Flomax 0.4 mg once every day, patient is not willing to have a Sibley catheter in place, we will continue to follow the patient very closely, may need urology consultation if is not getting better. 08/19: Patient has a Sibley catheter in place because of significant amount of urinary retention, up to 600 mL, continue Flomax 0.4 mg once every day, continue monitor the patient very closely, patient can be discharged home with Sibley catheter in place, follow-up with urology as an outpatient on Thursday, continue current treatment plan, continue current bowel care, patient is stable from medical point to be discharged home today. REVIEW OF SYSTEMS: Constitutional: No documented fever, no chills, no night sweats. No weight change. No weakness, fatigue or lethargy. No daytime sleepiness. EENT: No headache. No blurred vision or double vision, no loss of vision. No loss of Hearing, no ringing in the ears, no dizziness. No nasal drainage or congestion. No epistaxis. No sore throat. Lungs: No shortness of breath, no cough, no sputum production. No wheezing. Reports dyspnea with activity. Cardiovascular: No chest pain, no lower extremity edema. No palpitations. No paroxysmal nocturnal dyspnea. No orthopnea. No lightheadedness or dizziness. No syncopal episodes. Abdominal: Reports no abdominal pain. No nausea, vomiting. No diarrhea. No constipation. No bloody or tarry stools reports loss of appetite. Genitourinary: No dysuria, increased frequency, urgency. positive for urinary retention. Musculoskeletal: No myalgias. No muscle weakness, no gait dysfunction, no frequent falls. No back pain. No neck pain.left hip pain Integumentary: Left hip wound is clean with dressing in place., no lesions. No rash or pruritus. No unusual bruising. No change in hair or nails. Neurologic: No aphasia. No facial droop. No change in mentation. No head injury. No headache. No paralysis. No paresthesia. Psychiatric: No depression. No anxiety. No mood swings. Endocrine: No abnormal blood sugars. No weight change. PHYSICAL EXAMINATION: General: 83-year-old male sitting up in a chair in no apparent distress. HEENT: Head is atraumatic, normocephalic, pupils were equal round reactive to light and recommendation, extraocular muscle movement were intact, sclera nonicteric, conjunctivae were pale, mucous membranes of the mouth are somewhat dry. Neck: Supple, no JVP, normal carotid upstroke bilaterally, no lymphadenopathy. Chest: Decreased breath sounds at the bases, few rhonchi, no expiratory wheezes, no chest wall tenderness, no intercostal retractions. Heart: First heart sound is normal, second heart sounds normal there is systolic ejection murmur 2/6 located in the left sternal border. Abdomen: Soft, nontender, nondistended, positive bowel sounds. Extremities: There is no edema no calf tenderness DP +2 bilaterally, left hip is covered with a dressing no evidence of drainage or erythema. Neurologic examination: Patient is awake alert and oriented x3, cranial nerves II-12 appear grossly intact, muscle power were 5 out of 5 in upper extremities and 5 out of 5 in bilateral lower extremities, deep tendon reflexes normal bilaterally. ASSESSMENT AND PLAN: 1. Postoperative day #2 status post left anterior direct total hip arthroplasty. Patient was instructed to use incentive spirometer to reduce the incidence of atelectasis and healthcare associated pneumonia, continue current pain management as outlined by orthopedic surgery, continue DVT prophylaxis, early ambulation, keep Sibley catheter in place, follow-up with urology as an outpatient Thursday. 2. Hypertension and hypertensive cardiovascular disease. Continue losartan 25 mg once every day, atenolol 25 mg orally twice every day, monitor the patient blood pressure very closely. 3. Mixed hyperlipidemia. Continue atorvastatin 40 mg once every day, monitor lipid panel, keep LDL 55-70. 4. Enlarged prostate. Continue Flomax 0.4 mg twice every day, keep Sibley catheter in place and follow-up with urology on Thursday. 5. Osteoarthritis. Continue current pain management. 6. Coronary artery disease status post PCI with angioplasty. Continue aspirin 81 mg twice every day, continue atenolol 25 mg twice every day, continue atorvastatin 40 mg once every day. 7. Spondylosis of the lumbar spine stable at this time continue current pain management. 8. Carpal tunnel syndrome appears to be stable at this time. 9. Mild cognitive impairment. Stable at this time. 10. DVT prophylaxis. Continue aspirin 81 mg orally twice every day, continue with early ambulation. Continue bilateral knee-high ISH hose. 11. GI prophylaxis. Continue Protonix 40 mg once every day. 12. Insomnia. Continue patient on temazepam and or Unisom 13. Patient is medically stable to be discharged today with Sibley catheter and follow-up with urology on Thursday, follow-up with me as an outpatient 1 week. Objective - Vital Signs Vital signs: Vital Signs Temp 98.5 F 08/19/24 07:00 Pulse 83 08/19/24 07:00 Resp 20 08/19/24 07:00 BP 118/70 08/19/24 07:00 Pulse Ox 93 L 08/19/24 07:00 FiO2 Intake & Output 08/18/24 08/19/24 08/19/24 18:59 06:59 18:59 Output Total 400 1250 Balance -400 -1250 Output: Urine 400 1250 Straight 400 700 Other: Voiding Method Toilet Indwelling Catheter Urinal # Voids 1 - Labs CBC & Chem 7: 08/18/24 04:45
[2024-08-19 14:44] VITALS: BP 99/61; PULSE 79; RESP 18; TEMP 98.2
--- NOTE | 2024-08-19 15:07 | P.DS ---
Providers Attending physician: Iain Gu Consults: 08/17/24 17:23 Consult Physician Routine Consulting Provider: Beverley Klein Consult Reason/Comments: post op medical management Do you want consulting provider notified?: Yes 08/18/24 18:12 Consult Physician Routine Consulting Provider: Pollo Adorno Consult Reason/Comments: Urinary retention Do you want consulting provider notified?: Yes Primary care physician: Beverley Klein [facility] Course: This is a 83-year-old patient, with past medical history of severe left hip osteoarthritis, who failed nonsurgical conservative management. On 08/17/2024 the patient presented to the [facility] pre-op department for scheduled direct anterior total hip arthroplasty with Dr. Gu. The patient tolerated the procedure well. The patient was transferred to the orthopedic floor. The patient had no acute events over night. The patient's pain has been well- controlled. The patient has had urinary retention, and was seen by urology, and they recommended Osuna remain and will follow-up as an outpatient. Patient was examined at bedside this morning. Patient is resting comfortably in bed. No apparent distress. They are awake, alert and able to answer questions. Inspection: The surgical dressing is intact, there is no drainage or strikethrough. The skin surrounding the dressing is free of erythema. There is mild swelling in the operative thigh. Palpation: The operative calf is soft to compression. No calf tenderness. Neurovascular: Operative femoral nerve function is intact. The patient is able to actively plantarflex and dorsiflex their operative ankle and toes. Operative extremity sensation is intact to light touch throughout Their operative foot appears well perfused, palpable dorsalis pedis pulse, and capillary refill under 2 seconds. Patient worked with physical therapy and it was determined they could discharge home. Plan to discharge home today. Plan follow up in two weeks in our office. Please see med rec for a list of accurate medications. Assessment: Status post left total hip arthroplasty Left hip pain Urinary retention Plan - Discharge Summary Discharge Rx Participant: Yes New Discharge Prescriptions: New Cephalexin [Keflex] 500 mg PO Q12HR 3 Days #6 cap Aspirin 81 mg PO BID #60 tab Docusate [Colace] 100 mg PO BID #60 capsule HYDROcodone/APAP 5-325MG [Maxwell 5-325] 1 - 2 tab PO Q6HR PRN #48 tab PRN Reason: Pain Omeprazole 40 mg PO DAILY #30 cap Sennosides-Docusate Sodium [Senokot-S] 2 each PO HS tab Continue Atorvastatin [Lipitor] 40 mg PO HS Doxylamine Succinate [Unisom] 25 mg PO HS PRN PRN Reason: Insomnia Multivitamins, Thera [Multivitamin (formulary)] 1 tab PO DAILY atenoloL 25 mg PO BID Tamsulosin HCl [Flomax] 0.4 mg PO DAILY@1400 Losartan Potassium [Cozaar] 25 mg PO DAILY@1400 Discontinued Aspirin [Adult Low Dose Aspirin EC] 81 mg PO DAILY Celecoxib [CeleBREX] 200 mg PO DAILY Discharge Medication List Atorvastatin [Lipitor] 40 mg PO HS 11/21/20 [History] Losartan Potassium [Cozaar] 25 mg PO DAILY@1400 11/21/20 [History] Multivitamins, Thera [Multivitamin (formulary)] 1 tab PO DAILY 11/21/20 [History] Tamsulosin HCl [Flomax] 0.4 mg PO DAILY@1400 11/21/20 [History] atenoloL 25 mg PO BID 11/21/20 [History] Doxylamine Succinate [Unisom] 25 mg PO HS PRN 08/11/24 [History] Aspirin 81 mg PO BID #60 tab 08/18/24 [Rx] Docusate [Colace] 100 mg PO BID #60 capsule 08/18/24 [Rx] HYDROcodone/APAP 5-325MG [Maxwell 5-325] 1 - 2 tab PO Q6HR PRN #48 tab 08/18/24 [Rx] Omeprazole 40 mg PO DAILY #30 cap 08/18/24 [Rx] Cephalexin [Keflex] 500 mg PO Q12HR 3 Days #6 cap 08/19/24 [Rx] Sennosides-Docusate Sodium [Senokot-S] 2 each PO HS tab 08/19/24 [Rx] Follow up Appointment(s)/Referral(s): Beverley Klein MD [Primary Care Provider] - 08/24/24 10:00 am Isidoro Morfin MD [STAFF PHYSICIAN] - 08/22/24 11:40 am Iain Gu MD [Medical Doctor] - 08/29/24 10:45 am (With Sean) Patient Instructions/Handouts: Osuna Catheter Placement and Care (DC), Osuna Catheter Removal (DC) Activity/Diet/Wound Care/Special Instructions: 1. Weight-bear as tolerated on your operative extremity unless instructed othe rwise. Use a walker or other assistive device to ambulate. 2. Leave surgical dressing in place. If your dressing becomes saturated with blood, there is drainage, or the dressing becomes loose please contact the office. 3. It is okay to shower with your surgical dressing, but do not submerge in water (no hot tubs, bath's, swimming etc.) 4. Make sure to take her blood clot prevention medication as prescribed (aspirin, Eliquis, Xarelto, and Plavix are commonly prescribed medications for blood clot prevention) 5. While taking Maxwell or Percocet for pain make sure you're taking a stool softener (Colace) and drink lots of water. 6. Keep all follow-up appointments as scheduled. You will usually be seen in 1-2 weeks following surgery. 7. Please contact the office with any questions or concerns [phone] Urology Note: 4 hours to thursday 3 appointment with urology remove osuna Catheter. Discharge Disposition: HOME WITH HOME HEALTH SERVICES
== END 2024-08-19 15:40 | disposition home health service (06) ==
LOC: OR 13:12 → 4SSUR 17:58 → OR 08-19 15:40
PROVIDERS: ATTEND Orthopaedic Surgery
DX: M16.12 Unilateral primary osteoarthritis, left hip (principal); E78.2 Mixed hyperlipidemia; G31.84 Mild cognitive impairment of uncertain or unknown etiology; G47.00 Insomnia, unspecified; G89.18 Other acute postprocedural pain; E55.9 Vitamin D deficiency, unspecified; I11.9 Hypertensive heart disease without heart failure; I25.10 Atherosclerotic heart disease of native coronary artery without angina pectoris; N40.1 Benign prostatic hyperplasia with lower urinary tract symptoms; Z79.1 Long term (current) use of non-steroidal anti-inflammatories (NSAID); Z79.82 Long term (current) use of aspirin; Z79.899 Other long term (current) drug therapy; Z88.5 Allergy status to narcotic agent; Z91.148 Patient's other noncompliance with medication regimen for other reason; Z95.5 Presence of coronary angioplasty implant and graft; Z85.828 Personal history of other malignant neoplasm of skin
CPT/HCPCS: 97116; 97161; 64999; 85025; 73501; 27130; C1776; C1713; J0171; J2250; J1100; J0690 ×2; J2405; J3010; J3490; J1885

== ENCOUNTER → 2024-08-24 | Outpatient (CLI) | payer MEDICARE ==
--- NOTE | 2024-08-24 11:51 | US ---
EXAMINATION TYPE: US venous doppler duplex LE BI DATE OF EXAM: 08/24/2024 11:32 AM COMPARISON: NONE CLINICAL INDICATION: Male, 83 years old with history of M79.605 PAIN IN LEFT LEG; Leg swelling. No r edness. Left hip replacement x 1 week ago, Pain TECHNIQUE: The lower extremity deep venous system is examined utilizing real time linear array sonog mary with graded compression, color doppler sonography, and spectral doppler. SIDE PERFORMED: Bilateral FINDINGS: VESSELS IMAGED: Common Femoral Vein Deep Femoral Vein Greater Saphenous Vein * Femoral Vein Popliteal Vein Small Saphenous Vein * Proximal Calf Veins (* superficial vessels) Right Leg: Negative for DVT, Color Doppler imaging shows patency of the vessels. Spectral waveforms are within normal limits. Left Leg: Negative for DVT, Color Doppler imaging shows patency of the vessels. Spectral waveforms a re within normal limits. IMPRESSION: No ultrasound evidence for deep venous thrombosis. [facility], , 08/24/2024 11:49 AM
--- NOTE | 2024-08-24 12:03 | XR ---
EXAMINATION TYPE: XR abdomen 2V DATE OF EXAM: 08/24/2024 COMPARISON: NONE HISTORY: Slow transit constipation TECHNIQUE: Single supine image of the abdomen is obtained FINDINGS: Small bowel demonstrates no evidence for dilatation or air fluid levels. Moderate amount of stool is present throughout the colon. No convincing evidence for pneumoperitoneum. No unusual calcifications. The lung bases are clear. Prominent heart. The osseous structures are intact. Multilevel degenerative changes of the visualized spine. Left hip arthroplasty change. IMPRESSION: Overall nonobstructive bowel gas pattern. Moderate colonic stool burden. [facility], , 08/24/2024 12:01 PM
== END | disposition home or self-care (01) ==
LOC: RADUSWWP 11:06
PROVIDERS: ATTEND Internal Medicine
DX: M79.605 Pain in left leg (principal); K59.01 Slow transit constipation; Z96.642 Presence of left artificial hip joint
CPT/HCPCS: 74019; 93970

== ENCOUNTER → 2024-11-02 | Outpatient (CLI) | payer MEDICARE ==
[2024-11-02 14:50] LABS: Reticulocyte % 1.55 % (0.10-1.80)
[2024-11-02 15:36] LABS: Protein, Total 6.3 g/dL (6.2-8.2)
[2024-11-02 18:22] LABS: % Iron Saturation 29.45 (15.00-50.00); Iron 91 UG/DL (65-175); LDH 177 U/L (120-246); Rheumatoid Factor, Qnt <15 IU/mL (0-15); Total Iron Binding Capacity 309 UG/DL (228-460); Total Protein 6.6 g/dL (6.2-8.2)
[2024-11-04 11:13] LABS: Free Kappa Lt Chain Qnt, Serum 2.85 mg/dL (0.33-1.94); Free Lambda Lt Chain Qnt, Seru 1.66 mg/dL (0.57-2.63)
== END | disposition home or self-care (01) ==
LOC: LABWHC1 08:26
PROVIDERS: ATTEND Internal Medicine
DX: R79.9 Abnormal finding of blood chemistry, unspecified (principal)
CPT/HCPCS: 36415; 82525; 82607; 82728; 82746; 83010; 83540; 83550; 83615; 83883; 84155; 84165; 85045; 86038; 86431